=== PATIENT | male | born 1980 | race Caucasian/White ===

== ENCOUNTER 2024-07-01 10:34 | Emergency (ER) | payer BC ==
[2024-07-01] MEDS: Diphtheria,Pertussis(Acell),Tetanus Vaccine 0.5 ML Syringe IM ONE (11:03)
[2024-07-01] MEDS: Acetaminophen 325 MG Tab PO ONE (11:03)
== END 2024-07-01 13:00 | disposition home or self-care (01) ==
LOC: JD.ED 10:34
DX: S93.401A Sprain of unspecified ligament of right ankle, initial encounter (principal); Z23 Encounter for immunization; X50.1XXA Overexertion from prolonged static or awkward postures, initial encounter
CPT/HCPCS: 73610; 90471; 90715; 99283; A9270; 99282